=== PATIENT | male | born 1955 | race Caucasian/White ===

== ENCOUNTER 2018-02-28 09:08 | Emergency (ER) | payer MEDICARE, OTHER ==
--- NOTE | 2018-02-28 10:32 | ER ---
Nurse's Notes [facility] Name: Eb Yoon Age: 62 yrs Sex: Male : 1955 Arrival Date: 02/28/2018 Time: 09:11 Bed 12 Private MD: Diagnosis: Cutaneous abscess of right upper limb Presentation: 02/28 09:37 Presenting complaint: Patient states: "my right elbow ached last night and then when I dm5 woke up this morning there was this (a marble sized reddened raised area). I think there is one on my back as well" Pain rated at 1/10 at this time. Transition of care: patient was not received from another setting of care. Onset of symptoms was February 26, 2018. Risk Assessment: Do you want to hurt yourself or someone else? Patient reports no desire to harm self or others. Initial Sepsis Screen: Does the patient meet any 2 criteria? No. Patient's initial sepsis screen is negative. Does the patient have a suspected source of infection? Yes: Other: possible abscess. Care prior to arrival: None. 09:37 Method Of Arrival: Ambulatory dm5 09:37 Acuity: TRAVIS 4 dm5 Historical: - Allergies: 09:42 PENICILLINS; dm5 09:42 unknown inhaler; dm5 - PMHx: 09:42 COPD; Emphysema; Hypertension; dm5 - PSHx: 09:42 Appendectomy; cardiac stent; left hand surg; Cholecystectomy; "spina bifada" with dm5 bulged disc; Screenin:00 Abuse screen: Denies threats or abuse. Denies injuries from another. Nutritional la1 screening: No deficits noted. Tuberculosis screening: No symptoms or risk factors identified. Fall Risk None identified. Assessment: 10:00 General: Appears in no apparent distress. Behavior is calm, cooperative. Pain: Denies la1 pain. Neuro: Level of Consciousness is awake, alert, obeys commands, Oriented to person, place, time, situation. Cardiovascular: Capillary refill < 3 seconds Patient's skin is warm and dry. Respiratory: Airway is patent Trachea midline Respiratory effort is even, unlabored, Respiratory pattern is regular, symmetrical. GI: No signs and/or symptoms were reported involving the gastrointestinal system. : No signs and/or symptoms were reported regarding the genitourinary system. EENT: No signs and/or symptoms were reported regarding the EENT system. Derm: Skin is intact, is healthy with good turgor, Skin is pink, warm \\T\\ dry. Wound noted right arm. Musculoskeletal: No signs and/or symptoms reported regarding the musculoskeletal system. Vital Signs: 09:42 BP 140 / 117; Pulse 75; Resp 18; Temp 98(O); Pulse Ox 99% on R/A; Weight 83.46 kg (R); dm5 Height 5 ft. 11 in. (180.34 cm); Pain 05/17; 09:42 Body Mass Index 25.66 (83.46 kg, 180.34 cm) dm5 ED Course: 09:11 Patient arrived in ED. as 09:39 Triage completed. dm5 09:42 Arm band placed on right wrist. dm5 10:00 Patient has correct armband on for positive identification. Call light in reach. la1 10:09 Keven Parsons PA is PHCP. jr8 10:09 Federico Rodriguez MD is Attending Physician. jr8 Administered Medications: No medications were administered Outcome: 10:31 Discharge ordered by . jr8 10:52 Patient left the ED. hb Signatures: Trinity Rich, RN RN dm5 Monica Mercedes Josh, PA PA jr8 Manjinder Gomez RN RN la1 Renetta Guzmán RN RN hb
--- NOTE | 2018-02-28 10:32 | EDPHYS ---
Physician Documentation [facility] Name: Eb Yoon Age: 62 yrs Sex: Male : 1955 Arrival Date: 02/28/2018 Time: 09:11 Bed 12 Private MD: ED Physician Federico Rodriguez HPI: 02/28 10:39 This 62 yrs old Male presents to ER via Ambulatory with complaints of Insect jr8 Bite, Elbow Pain. 10:39 Onset: The symptoms/episode began/occurred acutely, yesterday. The patient has not jr8 experienced similar symptoms in the past. The patient has not recently seen a physician. 10:39 the patient presents with a swollen area of the right arm. Possible cause(s): unknown. jr8 Associated signs and symptoms: The patient has no apparent associated signs or symptoms. Severity of symptoms: At their worst the symptoms were mild, in the emergency department the symptoms are unchanged. Patient stated that he noticed mild red swollen area to right elbow region. Upon waking up today noticed that it was a lot larger and much more tender to palpation . Historical: - Allergies: 09:42 PENICILLINS; dm5 09:42 unknown inhaler; dm5 - PMHx: 09:42 COPD; Emphysema; Hypertension; dm5 - PSHx: 09:42 Appendectomy; cardiac stent; left hand surg; Cholecystectomy; "spina bifada" with dm5 bulged disc; ROS: 10:39 Eyes: Negative for injury, pain, redness, and discharge, ENT: Negative for injury, jr8 pain, and discharge, Neck: Negative for injury, pain, and swelling, Cardiovascular: Negative for chest pain, palpitations, and edema, Respiratory: Negative for shortness of breath, cough, wheezing, and pleuritic chest pain, Abdomen/GI: Negative for abdominal pain, nausea, vomiting, diarrhea, and constipation, Back: Negative for injury and pain, MS/Extremity: Negative for injury and deformity, Neuro: Negative for headache, weakness, numbness, tingling, and seizure. 10:39 Skin: Positive for abscess, of the right arm. Exam: 10:39 Constitutional: This is a well developed, well nourished patient who is awake, alert, jr8 and in no acute distress. Cardiovascular: Regular rate and rhythm with a normal S1 and S2. No gallops, murmurs, or rubs. Normal PMI, no JVD. No pulse deficits. Respiratory: Lungs have equal breath sounds bilaterally, clear to auscultation and percussion. No rales, rhonchi or wheezes noted. No increased work of breathing, no retractions or nasal flaring. MS/ Extremity: Pulses equal, no cyanosis. Neurovascular intact. Full, normal range of motion. Neuro: Awake and alert, GCS 15, oriented to person, place, time, and situation. Cranial nerves II-XII grossly intact. Motor strength 5/5 in all extremities. Sensory grossly intact. Cerebellar exam normal. Normal gait. 10:39 Skin: Patient has small cutaneous abscess note to right lateral aspect of the forearm near the elbow. Small pustulous head noted with mild induration. No surrounding cellulitis . Vital Signs: 09:42 BP 140 / 117; Pulse 75; Resp 18; Temp 98(O); Pulse Ox 99% on R/A; Weight 83.46 kg (R); dm5 Height 5 ft. 11 in. (180.34 cm); Pain 05/17; 09:42 Body Mass Index 25.66 (83.46 kg, 180.34 cm) dm5 MDM: 10:09 Patient medically screened. [facility] 10:31 Data reviewed: vital signs, nurses notes, and as a result, I will discharge patient. [facility] Data interpreted: Pulse oximetry: on room air is 99 %. Interpretation: normal. Counseling: I had a detailed discussion with the patient and/or guardian regarding: the historical points, exam findings, and any diagnostic results supporting the discharge/admit diagnosis, the need for outpatient follow up, a family practitioner, to return to the emergency department if symptoms worsen or persist or if there are any questions or concerns that arise at home. Administered Medications: No medications were administered Disposition: 02/28/18 10:31 Discharged to Home. Impression: Cutaneous abscess of right upper limb. - Condition is Stable. - Discharge Instructions: Skin Abscess. - Prescriptions for Bactrim DS 800- 160 mg Oral Tablet - take 1 tablet by ORAL route every 12 hours for 10 days; 20 tablet. Bactroban 2 % Topical Ointment - Apply to affected area 1 application by TOPICAL route every 12 hours; 15 gram. - Medication Reconciliation Form, Thank You Letter, Antibiotic Education, Prescription Opioid Use form. - Follow up: Private Physician; When: 2 - 3 days; Reason: Wound Recheck, Recheck today's complaints, Continuance of care, Re-evaluation by your physician. - Problem is new. - Symptoms have improved. Addendum: 03/10/2018 08:00 Co-signature as Attending Physician, Federico Rodriguez MD I agree with the assessment and k dr plan of care. Signatures: Trinity Rich, RN RN dm5 Federico Rodriguez MD MD [facility] Keven Parsons PA PA jr8 Renetta Guzmán RN RN Corrections: (The following items were deleted from the chart) 02/28 10:52 10:31 02/28/2018 10:31 Discharged to Home. Impression: Cutaneous abscess of right upper hb limb. Condition is Stable. Forms are Medication Reconciliation Form, Thank You Letter, Antibiotic Education, Prescription Opioid Use. Follow up: Private Physician; When: 2 - 3 days; Reason: Wound Recheck, Recheck today's complaints, Continuance of care, Re-evaluation by your physician. Problem is new. Symptoms have improved. jr8
[2018-02-28 10:56] VITALS: BP 140/117; TEMP 98; O2SAT 99
== END 2018-02-28 10:52 | disposition home or self-care (01) ==
LOC: ER 09:08
DX: L02.413 Cutaneous abscess of right upper limb (principal); I10 Essential (primary) hypertension; Z88.0 Allergy status to penicillin; Z88.8 Allergy status to other drugs, medicaments and biological substances; Z95.818 Presence of other cardiac implants and grafts
CPT/HCPCS: 99281